=== PATIENT | female | born 1990 | race Caucasian/White ===

== ENCOUNTER 2019-09-21 06:00 | Inpatient (IN) | payer OTHER ==
[~2019-09-21] VITALS: Ht 160 cm; Wt 47.7 kg
[2019-09-21 06:38] VITALS: Ht 160 cm; Wt 47.7 kg
[2019-09-21] MEDS ORDERED: METHYLERGONOVINE 0.2 MG INJ IM PRN ×2 (07:30→19:00)
[2019-09-21] MEDS ORDERED: BUTORPHANOL 2 MG INJ IV PRN (07:30)
[2019-09-21] MEDS ORDERED: AMPICILLIN 2 GM/NS (PMX) 100 ML IV ONE (07:30)
[2019-09-21] MEDS ORDERED: MINERAL OIL LIGHT 10 ML VIAL TOP PRN (07:30)
[2019-09-21] MEDS ORDERED: MISOPROSTOL 200 MCG TAB PR PRN ×2 (07:30→19:00)
[2019-09-21] MEDS ORDERED: OXYTOCIN 30 UNITS/LR 500 ML IV SCH ×2 (07:30)
[2019-09-21] MEDS ORDERED: LIDOCAINE 1% (MPF) 30 ML INJ INJ PRN (07:30)
[2019-09-21] MEDS ORDERED: OXYTOCIN 30 UNITS/LR 500 ML IV PRN ×2 (07:30→19:00)
[2019-09-21] MEDS ORDERED: CARBOPROST 250 MCG INJ IM PRN ×2 (07:30→19:00)
[2019-09-21] MEDS: LACTATED RINGER'S 1,000 ML IV SCH ×2 (07:43→18:33)
[2019-09-21] MEDS ORDERED: FENTAnyl 2MCG/ML-ROPIV 0.2% 100 ML ONE (09:57)
[2019-09-21] MEDS ORDERED: ONDANSETRON 4 MG INJ IV PRN (10:00)
[2019-09-21] MEDS ORDERED: FENTAnyl 2MCG/ML-ROPIV 0.2% 100 ML BAG EPI SCH (10:00)
[2019-09-21] MEDS ORDERED: DIPHENHYDRAMINE 50 MG INJ IV PRN (10:00)
[2019-09-21] MEDS ORDERED: NALOXONE (0.4 MG/ML) INJ IV PRN (10:00)
[2019-09-21] MEDS: AMPICILLIN 1 GM/NS (PMX) 50 ML IV SCH ×2 (11:30→15:30)
[2019-09-21] MEDS ORDERED: CEFAZOLIN 2 GM/50 ML (PMX) 50 ML IVPB ONE (14:05)
[2019-09-21] MEDS ORDERED: IBUPROFEN 600 MG TAB PO PRN (17:09)
[2019-09-21 18:30] VITALS: BP 111/53; PULSE 82; RESP 18
[2019-09-21] MEDS ORDERED: ZOLPIDEM 5 MG TAB PO PRN (19:00)
[2019-09-21] MEDS ORDERED: OXYCODONE/ASPIRIN (4.88/325) TAB PO PRN (19:00)
[2019-09-21 20:20] VITALS: BP 122/56; PULSE 92; RESP 18
[2019-09-21] MEDS: BENZOCAINE 20% 56 ML SPRAY TOP PRN (21:45)
[2019-09-21] MEDS: OXYCODONE/ASPIRIN (4.88/325) TAB PO PRN (21:46)
[2019-09-21] MEDS: SENNA/DOCUSATE NA (8.6MG/50MG) TAB PO SCH (21:46)
[2019-09-21] MEDS: WITCH HAZEL/GLYCERIN PAD PR PRN (21:46)
[2019-09-21] MEDS: LANOLIN HPA 1 PKT TOP PRN (21:47)
[2019-09-21] MEDS: IBUPROFEN 600 MG TAB PO SCH (23:39)
[2019-09-22] VITALS: BP 114/55; PULSE 91; RESP 18
[2019-09-22 04:10] VITALS: BP 107/52; PULSE 77; RESP 18
[2019-09-22] MEDS: IBUPROFEN 600 MG TAB PO SCH ×4 (05:52→23:50)
[2019-09-22 08:00] VITALS: BP 124/61; PULSE 86; RESP 16
[2019-09-22] MEDS: SENNA/DOCUSATE NA (8.6MG/50MG) TAB PO SCH ×2 (08:44→21:38)
[2019-09-22] MEDS: LANOLIN HPA 1 PKT TOP PRN (11:46)
[2019-09-22] MEDS: OXYCODONE/ASPIRIN (4.88/325) TAB PO PRN (11:46)
[2019-09-22 15:40] VITALS: BP 114/62; PULSE 86; RESP 16
[2019-09-22 16:00] VITALS: BP 112/61; PULSE 83; RESP 17
[2019-09-22 20:00] VITALS: BP 114/70; PULSE 94; RESP 18
[2019-09-23 04:09] VITALS: BP 112/69; PULSE 78; RESP 18
[2019-09-23] MEDS: IBUPROFEN 600 MG TAB PO SCH ×3 (05:51→17:45)
[2019-09-23 08:30] VITALS: BP 106/67; PULSE 64; RESP 18
[2019-09-23] MEDS: SENNA/DOCUSATE NA (8.6MG/50MG) TAB PO SCH (09:00)
[2019-09-23] MEDS ORDERED: DIPHTH/TET/ACEL PERTUSS (ADULT) 0.5 ML VIAL IM* ONE (09:00)
[2019-09-23] MEDS: WITCH HAZEL/GLYCERIN PAD PR PRN (09:05)
[2019-09-23] MEDS: BENZOCAINE 20% 56 ML SPRAY TOP PRN (09:05)
[2019-09-23 16:12] VITALS: BP 114/57; PULSE 83; RESP 18
== END 2019-09-23 18:39 | disposition home or self-care (01) | DRG 807 ==
LOC: L-D 06:00 → OBT 06:00 → L-D 07:34 → PP1 18:30
PROVIDERS: ADMIT Obstetrics & Gynecology; ATTEND Obstetrics & Gynecology
PROC: 10E0XZZ Delivery of Products of Conception, External Approach (ICD-10-PCS; principal; 2019-09-21)
PROC: 0UQMXZZ Repair Vulva, External Approach (ICD-10-PCS; 2019-09-21)
PROC: 3E033VJ Introduction of Other Hormone into Peripheral Vein, Percutaneous Approach (ICD-10-PCS; 2019-09-21)
DX: O69.81X0 Labor and delivery complicated by cord around neck, without compression, not applicable or unspecified (principal); Z37.0 Single live birth; O71.82 Other specified trauma to perineum and vulva; Z3A.39 39 weeks gestation of pregnancy
CPT/HCPCS: 62322; 85025; 85610; 85730; 86592; 86850; 86900; 86901; 87340; G0463; J0290; J0690; J2590; J3010; J7120